=== PATIENT | male | born 1965 | race Caucasian/White ===

== ENCOUNTER 2017-07-27 05:44 | Inpatient (IN) | payer MEDICARE, MEDICAID ==
[~2017-07-27] VITALS: Ht 170.2 cm; Wt 115.0 kg
[2017-07-27] MEDS ORDERED: CYCL10TA PO (06:17)
[2017-07-27] MEDS ORDERED: diphenhydrAMINE INJ 50MG/ML VIAL (J1200) IM STA (09:44)
[2017-07-27] MEDS ORDERED: HALOPERIDOL 5 MG/ML VIAL (J1630) IM STA (09:44)
[2017-07-27 11:56] VITALS: BP 114/81
--- NOTE | 2017-07-27 12:58 | MHHPE ---
DATE OF ADMISSION: 07/27/2017 Yobany Toledo is a 51-year-old male admitted through the emergency room and to the unit, who has a girlfriend. He is single. He states that the cuts of his arm were from running through a thorn dotson. He states that he sent a picture of his cut arm to his girlfriend. Prior to that, he had been seen by his girlfriend in his garage sharpening a knife, and she called the police. Apparently, he says he ran from the police and then ran through thorn bushes, and at that time sent a picture of his bleeding arm to his girlfriend. He has a long history of self-inflicted wounds that are noticed on his arm and in other places. The patient employment history, he states he is on Disability but used to work at [employer]. LEGAL HISTORY: He states is negative. PSYCHIATRIC HOSPITALIZATION: He states it occurred a "long time ago." MEDICATIONS: The patient states he is on: - cyclobenzaprine given to him from the emergency room (ER) for back pain SURGICAL HISTORY: He states he had carpal tunnel syndrome of his left hand. EDUCATIONAL HISTORY: He achieved eleventh grade. The patient states he has never been but has two children he does not see anymore. He has no medical doctor followup. ALCOHOL HISTORY: Is negative. The patient states he uses marijuana. MENTAL STATUS: The patient states he is not depressed, not upset. He denies auditory hallucinations, delusions, obsessions, compulsions, phobias, and states he is not suicidal. Speech is slightly slurred. No disturbance of thought processes. No loose associations. No abnormal psychotic thoughts. Judgment and insight are poor. Fully oriented. Recent and remote memory are intact. Attention and concentration are within normal limits. No disturbance of language. Full fund of knowledge. Mood is irritable. Affect is irritable. IMPRESSION: The patient is not telling the truth concerning his behavior and is attempting to convince us that his cuts on his arm are from thorn bushes. Further information will be gathered from his girlfriend and any other information that can be sought. IMPRESSION: 1. 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 2. Substance abuse. PLAN: Further information will be gathered.
[2017-07-27] MEDS ORDERED: LORazepam 2 MG TAB PO PRN (13:30)
[2017-07-27] MEDS ORDERED: diphenhydrAMINE 50 MG CAP PO PRN (13:30)
[2017-07-27 18:00] VITALS: BP 124/79
[2017-07-28 06:00] VITALS: BP 125/84
--- NOTE | 2017-07-28 08:53 | MHIPN ---
DATE: 07/28/2017 Mr. Toledo continues to insist on wanting to leave. He continues to state clearly that the scratches on his wrists are from thorn bushes. He is unable to explain why he ran away from the police or sent the picture to his girlfriend. I explained to him that we needed more information prior to considering discharge planning. He continued to be insistent on wanting to leave. He denies suicidal ideation or intent at this time. MENTAL STATUS: Speech is normal. Thought process normal. No loose associations. No psychotic thoughts. Judgment and insight poor. Orientation full in three spheres. Recent and remote memory intact. Attention and concentration intact. No disturbance of language. He has a full fund of knowledge. Mood is irritable. Affect is anxious. DIAGNOSES: Rule out mood disorder, not otherwise specified (NOS). Personality disorder, not otherwise specified. PLAN: Get further information from girlfriend.
--- NOTE | 2017-07-28 10:23 | HPEPDOC ---
[facility] Medical History & Physical Date of Admission Jul 28, 2017 History and Physical PCP: None ATTENDING: Dr. Juan Diamond HPI: 52 yo M admitted to [facility] for unspecified depressive disorder, being medically examined today. Patient was transferred from [facility] 07/27/17. He is noted to have superficial lacerations on the left inner forearm, patient states this is from walking in a briar patch. No acute medical complaints today. Has no voiced concerns. Becomes agitated with providing history. He is noted to be taking cyclobenzaprine 3 times a day as needed on his medication list however he states he has not been taking it recently. He does not recall who prescribed it. He does not complain of pain currently. He does not feel he needs to see pain management. Denies any fevers, chills, weakness, fatigue, PAIGE, CP, SOB, cough, palpitations, abdominal pain, N/V/D or changes in bowel or bladder habits. PMHx: Depression Anxiety History of SI Self mutilation Right shoulder pain PSHX: Denies SOCHX: Resides in: [facility] Marital Status: Single Kids: None Employment: Unemployed Tobacco use: One half pack per day ETOH: Denies Illicit Drugs: Denies IV Drug Use: Denies Tattoos done unprofessionally: Denies FAMHX: Mother: , unknown Father: , unknown Siblings: Unknown Children: None Unexpected deaths due to medical reasons: None. ROS: As noted in HPI, otherwise 11pt ROS of systems reviewed and unremarkable. Becomes agitated with providing history. PE: GEN: 52 yo M, appears stated age. Well-nourished, well developed. No acute distress. Alert and oriented x 3. Pleasant, interactive. HEENT: Normocephalic, atraumatic. Pupils are equal, round, and reactive to light. Extraocular movements are intact. No nystagmus appreciated. Sclera are nonicteric. Conjunctiva without injection. Nose midline. Nasal turbinates without bogginess. EACs both patent BL. TMs both visualized and vale with good cone of light, no bulging or erythema. No facial asymmetry. Moist mucous membranes. Dentition fair. Pharynx pink and moist, no cobblestoning. Neck supple , trachea midline. No lymphadenopathy or thyromegaly appreciated. CHEST: Regular rate and rhythm, +S1, +S2 LUNGS: Clear to auscultation bilaterally. No wheezes, rales, or rhonchi. Breathing appears symmetric and easy. Patient is speaking in full sentences. No accessory muscle use. ABD: Round, soft, non-tender, non-distended. +Bowel sounds throughout. No rebound or guarding. No costovertebral angle tenderness. EXT: Pulses 2+ bilaterally dorsalis pedis and radial. No lower extremity edema appreciated. SKIN: [place], dry, warm. Capillary refill <2sec. No rashes. Superficial lacerations are noted to left inner forearm. Minimal erythema. No drainage. NEURO: Alert and oriented x 3. Cranial nerves III-XII are intact. No focal deficits appreciated. EKG: Pending. [facility] WBC 8.7 Hgb 15.0 HCT 44.1 PLT 321 Gluc 97 BUN 9 SCr 0.732 Na 140 K 3.7 Ca 8.4 ALT 27 AST 31 Toxicology unremarkable. UA unremarkable A&P: 52 yo M admitted to [facility] for unspecified depressive disorder 1. Psych. Plan per Psychiatry. Obtain baseline EKG to assure the safety of psychiatric medications as they can prolong the QT interval. 2. Nicotine dependence. Patch available. 3. Superficial lacerations. Appear to be healing. Keep area clean and dry. Dry dressing if needed. 4. Follow up. No Primary Care Provider. Will attempt to establish PCP on discharge. 5. History of right shoulder pain. Patient denies pain at this time. Continue Tylenol 650 mg every 6 hours as needed. 6. Staff Member Abhijit present throughout exam. Vital Signs Vital Signs Date Time Temp Pulse Resp B/P (MAP) Pulse Ox O2 Delivery O2 Flow Rate FiO2 07/28/17 06:00 99.6 79 20 125/84 (98) 07/27/17 11:56 97 Room Air Home Medications Scheduled PRN Albuterol Sulfate (Ventolin Hfa) 200 Puff/8 Gm Aers, 2 PUFF INH Q4HP PRN for SHORTNESS OF BREATH Cyclobenzaprine HCl (Cyclobenzaprine HCl) 10 Mg Tab, 10 MG PO TID PRN for MUSCLE SPASMS Allergies Coded Allergies: Ibuprofen (Unverified Allergy, Intermediate, HIVES, 07/27/17) Stephanie Martinez Jul 28, 2017 10:23
[2017-07-28] MEDS: HALOPERIDOL 5 MG TAB PO PRN (17:41)
[2017-07-28 18:21] VITALS: BP 115/58
[2017-07-29] MEDS: ACETAMINOPHEN TAB 650MG DOSE (2X325MG) PO PRN ×2 (08:29→17:27)
--- NOTE | 2017-07-29 12:25 | IPN ---
DATE: 07/29/2017 Mr. Toledo admits the cuts on his arms were made by a knife. He threatened staff that if he was not seen today that "shit would hit the fan." Apparently no contact, as far as I know, has yet been able to be made with his girlfriend to enable us to involve ourself in discharge planning. MENTAL STATUS EXAMINATION: Speech is normal. Thought process normal. No loose associations. No psychotic thoughts. Judgment and insight are poor. Orientation is full in three spheres. Remote and recent memory are intact. No disturbance of attention or concentration. Language is intact. Full fund of knowledge. Mood is good. Affect is bright but labile. Denies hallucinations, delusions, obsessions, compulsions and phobias. IMPRESSION: This man has significant personality issues and followup will be discussed Monday with the discharge planning. Further information hopefully gotten from girlfriend.
[2017-07-29] MEDS ORDERED: MAALOX 30 ML SUSP *UDC PO PRN (16:15)
[2017-07-29] MEDS ORDERED: MOM 30ML SUSPENSION UDC PO PRN (16:15)
[2017-07-29 18:14] VITALS: BP 113/70
[2017-07-29] MEDS: traZODone 50 MG TAB PO PRN (20:10)
[2017-07-30] MEDS: HALOPERIDOL 5 MG TAB PO PRN (12:22)
--- NOTE | 2017-07-30 15:06 | MHIPN ---
DATE: 07/30/2017 Mr. Toledo continues to repetitively discuss his discharge. His insight into his behavior here, which has included lying to us about his self-cutting, his sending pictures to his girlfriend about his bleeding arm, his threatening that "shit would hit the fan here," have been pointed out to him as serious concerns about his personal choices. He agrees to outpatient treatment. MENTAL STATUS EXAMINATION: Speech normal. Thought process normal. Associations are unremarkable. No psychotic thoughts. Judgment poor. Insight poor. Fully oriented in three spheres. Recent and remote memory intact. Attention and concentration intact. No disturbance of language. Fund of knowledge is full. Mood is good. Affect is bright. Denies suicidal or homicidal ideation. DIAGNOSES: 1. Adjustment disorder with depressed mood. 2. Personality disorder not otherwise specified (NOS). Will begin planning discharge with outpatient followup.
[2017-07-30] MEDS ORDERED: ALBUTEROL 90 MCG/ACT 8GM HFA INHALER INH PRN (16:00)
[2017-07-30 18:09] VITALS: BP 120/75
[2017-07-30] MEDS: traZODone 50 MG TAB PO PRN (19:59)
[2017-07-31] MEDS ORDERED: ALBU17IN INH (08:48)
--- NOTE | 2017-07-31 10:17 | DSES ---
DATE OF ADMISSION: 07/27/2017 DATE OF DISCHARGE: 07/31/2017 Yobany Toledo is a 51-year-old male who states he is registered sex offender. He was admitted through the emergency room for self-harm. He is single with a girlfriend who has children. He states he appears with cuts on his arm and states they were from running through a thorn dots[place]. He states that he was sharpening a knife and that his girlfriend called the police and when the police came, he ran from them and his arm was cut with a thorn dotson. The cuts on his arm are obviously self-inflicted with some type of blade. He states he sent the picture of his arm to his girlfriend. Apparently, due to investigation of his living with a girlfriend with children, from Child Protective Services, (CPS), he will be returning to [facility]) for replacement in housing. The patient states he is on disability but used to work at [employer]. LEGAL HISTORY: He states is negative. But this is no true. He is apparently a registered sex offender. PSYCHIATRIC HOSPITALIZATION: He states occurred a long time ago. He is on no medications. PAST SURGICAL HISTORY: He states he had carpal tunnel syndrome of his left hand. EDUCATIONAL HISTORY: He states 11th grade. ALCOHOL HISTORY: Negative. DRUG HISTORY: The patient uses marijuana. HOSPITAL COURSE: The patient insisted and is only concerned with one subject of being discharged from the hospital because he misses is girlfriend. He, at times, threatened that "shit would hit the fan" if he did not get discharged. He constantly would knock on the physician's door asking about discharge throughout his stay. On Monday, he admitted the cuts on his arms were made by a knife. The patient's personal choices were discussed with him in counseling. His insight and judgment are poor. He denied any suicidal ideation or plan repetitively on questioning. He was not placed on any routine medications and planned to discharge the patient to [facility] was made. MENTAL STATUS EXAMINATION ON DISCHARGE: Speech was normal. No disturbance of though process. No loose associations. No psychotic thoughts. Judgment and insight are poor. He is fully oriented. Recent and remote memory are intact. Attention and concentration intact. Language demonstrated no disturbance. He had a full fund of knowledge. Mood was good. Affect was neutral. The patient will be discharged to [facility] for followup. DISCHARGE DIAGNOSIS: Depressive reaction. Personality disorder not otherwise specified (NOS).
== END 2017-07-31 11:58 | disposition home or self-care (01) | DRG 881 ==
LOC: EDBD 05:44 → M ED 05:44 → M ED INP 11:05 → M PSY 11:30
PROVIDERS: ADMIT Psychiatry & Neurology Psychiatry; ATTEND Psychiatry & Neurology Child & Adolescent Psychiatry
DX: F32.9 Major depressive disorder, single episode, unspecified (principal); F60.9 Personality disorder, unspecified; F17.200 Nicotine dependence, unspecified, uncomplicated; M25.511 Pain in right shoulder